=== PATIENT | male | born 1935 | race Asian ===

== ENCOUNTER 2017-06-15 20:57 | Emergency (ER) | payer OTHER ==
[2017-06-15 21:49] LABS: BASOPHIL % 0.2 % (0-2); CALCIUM 8.6 mg/dL (8.5-10.1); CARBON DIOXIDE 28.6 mmol/L (21-32); CHLORIDE SERUM 104 mmol/L (98-107); GLUCOSE SERUM 132 mg/dL (74-106); POTASSIUM SERUM 4.5 mmol/L (3.5-5.1); RED CELL DISTRIBUTION WIDTH 13.5 % (11.5-14.5); SODIUM SERUM 137 mmol/L (136-145)
[2017-06-15 21:51] LABS: PLATELET COUNT 114 x10^3mcL (130-400)
[2017-06-15 21:54] LABS: ALBUMIN 3.5 g/dL (3.4-5.0); ALKALINE PHOSPHATASE 70 U/L (46-116); ALT/SGPT 30 U/L (16-63); AMYLASE 78 U/L (25-115); AST/SGOT 22 U/L (15-37); BILIRUBIN TOTAL 1.11 mg/dL (0.20-1.00); LIPASE 179 IU/L (73-393); TOTAL PROTEIN, SERUM 7.2 g/dL (6.4-8.2)
[2017-06-15 23:29] VITALS: BP 110/70
== END 2017-06-15 23:29 | disposition home or self-care (01) ==
LOC: ED 20:57
PROVIDERS: Emergency Medicine
DX: E86.0 Dehydration (principal); R19.7 Diarrhea, unspecified; I48.91 Unspecified atrial fibrillation; E78.00 Pure hypercholesterolemia, unspecified; I10 Essential (primary) hypertension; Z95.5 Presence of coronary angioplasty implant and graft; Z88.8 Allergy status to other drugs, medicaments and biological substances
CPT/HCPCS: 83880; 87046; 87046-59; J2405; J7030

== ENCOUNTER 2017-08-07 00:39 | Emergency (ER) | payer OTHER ==
[2017-08-07 01:39] LABS: BASOPHIL % 0.3 % (0-2); RED CELL DISTRIBUTION WIDTH 13.5 % (11.5-14.5)
[2017-08-07 01:45] LABS: PLATELET COUNT 126 x10^3mcL (130-400)
[2017-08-07 01:47] LABS: CALCIUM 8.7 mg/dL (8.5-10.1); CARBON DIOXIDE 28.5 mmol/L (21-32); CHLORIDE SERUM 106 mmol/L (98-107); CREATININE SERUM 1.2 mg/dL (0.7-1.3); GLUCOSE SERUM 150 mg/dL (74-106); POTASSIUM SERUM 4.1 mmol/L (3.5-5.1); SODIUM SERUM 141 mmol/L (136-145)
[2017-08-07 01:52] LABS: ALBUMIN 3.6 g/dL (3.4-5.0); ALKALINE PHOSPHATASE 69 U/L (46-116); ALT/SGPT 24 U/L (16-63); AMYLASE 86 U/L (25-115); AST/SGOT 21 U/L (15-37); BILIRUBIN TOTAL 1.25 mg/dL (0.20-1.00); LIPASE 197 IU/L (73-393); TOTAL PROTEIN, SERUM 7.4 g/dL (6.4-8.2)
[2017-08-07 02:49] VITALS: BP 101/57
== END 2017-08-07 02:50 | disposition home or self-care (01) ==
LOC: ED 00:39
PROVIDERS: Emergency Medicine
DX: R19.7 Diarrhea, unspecified (principal); R10.9 Unspecified abdominal pain; I10 Essential (primary) hypertension; I48.91 Unspecified atrial fibrillation; E78.00 Pure hypercholesterolemia, unspecified; Z95.0 Presence of cardiac pacemaker; Z88.0 Allergy status to penicillin; Z88.2 Allergy status to sulfonamides
CPT/HCPCS: 83880; J7030

== ENCOUNTER 2017-11-08 13:34 | Emergency (ER) | payer OTHER ==
[2017-11-08 16:51] LABS: PLATELET COUNT 139 x10^3mcL (130-400); RED CELL DISTRIBUTION WIDTH 13.8 % (11.5-14.5)
[2017-11-08 17:00] LABS: microscopic required? NO
[2017-11-08 17:21] LABS: urine erythrocyte NEGATIVE (NEGATIVE)
[2017-11-08 17:26] LABS: CALCIUM 8.6 mg/dL (8.5-10.1); CARBON DIOXIDE 27.9 mmol/L (21-32); CHLORIDE SERUM 101 mmol/L (98-107); GLUCOSE SERUM 95 mg/dL (74-106); POTASSIUM SERUM 4.5 mmol/L (3.5-5.1); SODIUM SERUM 128 mmol/L (136-145)
[2017-11-08 17:31] LABS: ALBUMIN 3.8 g/dL (3.4-5.0); ALKALINE PHOSPHATASE 75 U/L (46-116); ALT/SGPT 35 U/L (16-63); AMYLASE 100 U/L (25-115); AST/SGOT 30 U/L (15-37); LIPASE 426 IU/L (73-393); TOTAL PROTEIN, SERUM 7.2 g/dL (6.4-8.2)
[2017-11-08 18:55] VITALS: BP 122/73
== END 2017-11-08 18:56 | disposition home or self-care (01) ==
LOC: ED 13:34
PROVIDERS: Emergency Medicine
DX: K21.9 Gastro-esophageal reflux disease without esophagitis (principal); E87.1 Hypo-osmolality and hyponatremia; I10 Essential (primary) hypertension; E78.00 Pure hypercholesterolemia, unspecified; I48.91 Unspecified atrial fibrillation; Z88.0 Allergy status to penicillin; Z88.1 Allergy status to other antibiotic agents
CPT/HCPCS: 83880; C9113; J0780; J7040

== ENCOUNTER 2018-01-30 07:20 | Emergency (ER) | payer OTHER ==
[~2018-01-30] VITALS: Ht 175.3 cm; Wt 65.8 kg
[2018-01-30 07:25] VITALS: Ht 175.3 cm; Wt 65.8 kg
[2018-01-30 08:15] LABS: CALCIUM 8.9 mg/dL (8.5-10.1); CARBON DIOXIDE 24.5 mmol/L (21-32); CHLORIDE SERUM 103 mmol/L (98-107); GLUCOSE SERUM 100 mg/dL (74-106); POTASSIUM SERUM 3.9 mmol/L (3.5-5.1); SODIUM SERUM 135 mmol/L (136-145)
[2018-01-30 08:20] LABS: ALBUMIN 3.6 g/dL (3.4-5.0); ALKALINE PHOSPHATASE 53 U/L (46-116); ALT/SGPT 20 U/L (16-63); AMYLASE 81 U/L (25-115); AST/SGOT 20 U/L (15-37); LIPASE 208 IU/L (73-393); TOTAL PROTEIN, SERUM 7.1 g/dL (6.4-8.2)
[2018-01-30 08:22] LABS: BASOPHIL % 0.1 % (0-2); RED CELL DISTRIBUTION WIDTH 13.9 % (11.5-14.5)
[2018-01-30 08:25] LABS: PLATELET COUNT 123 x10^3mcL (130-400)
[2018-01-30 09:16] VITALS: BP 108/70
== END 2018-01-30 09:17 | disposition home or self-care (01) ==
LOC: ED 07:20
PROVIDERS: Emergency Medicine
DX: K52.9 Noninfective gastroenteritis and colitis, unspecified (principal); I10 Essential (primary) hypertension; E78.00 Pure hypercholesterolemia, unspecified; I48.91 Unspecified atrial fibrillation; Z95.0 Presence of cardiac pacemaker

== ENCOUNTER 2020-10-28 05:53 | Day surgery (SDC) | payer OTHER ==
[~2020-10-28] VITALS: Ht 170.2 cm; Wt 63.5 kg
[2020-10-28] VITALS (7 sets, daily range): BP systolic 107–126; BP diastolic 0–96
== END 2020-10-28 10:00 | disposition home or self-care (01) ==
LOC: DS 05:53 → EDSTATUS 07:00 → DU 07:00 → DS 07:00
PROVIDERS: ATTEND Internal Medicine Geriatric Medicine
DX: I31.3 Pericardial effusion (noninflammatory) (principal)
CPT/HCPCS: 33010; 76930; C1894; J1644; J2001; J2250; J3010; Q9967